=== PATIENT | female | born 1995 | race Caucasian/White ===

== ENCOUNTER 2016-08-21 10:27 | Emergency (ER) | payer MEDICAID ==
[~2016-08-21] VITALS: Ht 157.5 cm; Wt 46.3 kg
[2016-08-21 12:58] VITALS: BP 113/71
== END 2016-08-21 12:56 | disposition home or self-care (01) ==
LOC: ED 10:27
DX: N12 Tubulo-interstitial nephritis, not specified as acute or chronic (principal)
CPT/HCPCS: J1885